=== PATIENT | male | born 1995 | race Two or more races ===

== ENCOUNTER 2025-06-20 21:10 | Emergency (ER) | payer MEDICAID, SELFPAY ==
[2025-06-20 21:15] VITALS: BMI 35.4
[2025-06-20 22:11] VITALS: BP 135/94; PULSE 109; RESP 20; TEMP 37.1; O2SAT 97
--- NOTE | 2025-06-20 22:34 | EKG_ITS ---
[facility] Test Date: 2025-06-20 Pat Name: ILYA SORIA Department: Room: - Gender: Male [employer] Operator: : 1995 Requested By: Jovanna Verduzco Order Number: [id number] Reading MD: Jovanna Verduzco Measurements Intervals [place] Rate: 122 P: 61 NE: 149 QRS: -7 QRSD: 118 T: 68 QT: 434 QTc: 621 Interpretive Statements SINUS TACHYCARDIA LOW QRS VOLTAGE IN PRECORDIAL LEADS [QRS DEFLECTION < 1.0 mV IN CHEST LEADS] INCOMPLETE RIGHT BUNDLE BRANCH BLOCK [90+ ms QRS DURATION, TERMINAL R IN V1/V2, 40+ ms S IN I/aVL/V4/V5/V6] ST DEVIATION AND MODERATE T-WAVE ABNORMALITY, CONSIDER ANTERIOR ISCHEMIA [-0.1+ mV T-WAVE IN V3/V4] No previous ECG available for comparison /store/S0/[id number].pdf
--- NOTE | 2025-06-20 22:34 | XR_ITS ---
Examination: CT abdomen with intravenous contrast CT pelvis with intravenous contrast 2-D coronal reconstructions 2-D sagittal reconstructions Date and time of exam:June 20, 2025 11:49 PM INDICATIONS: Abdominal pain and vomiting today. CTDI: vol (mGy) 12.6. DLP: (mGycm) 844. Technique: Multiple axial sections of the abdomen and pelvis have been obtained. 64 slice high-resolution scanner used. 3 mm axial sections have been obtained, post intravenous injection 60 cc Isovue 370. 2-D sagittal, coronal reconstructions obtained. Low dose protocols were performed. One or more of the following dose reduction techniques were used; automated exposure control, adjustment of the mA and/or KV according to patient size, use of iterative reconstruction technique. Findings: No focal liver or splenic lesions No gallstones No pancreatic or adrenal mass No renal or ureteral calculi, no hydronephrosis Normal appendix No bowel obstruction No diverticulitis Colonic diverticulosis, no diverticulitis Contracted urinary bladder Intact osseous structures IMPRESSION: Normal appendix No acute process in the abdomen or pelvis
--- NOTE | 2025-06-20 22:38 | PD.EDABDPN ---
ED Abdominal Pain RME/HPI General Chief Complaint: Abdominal Pain Stated complaint: ABD PAIN Time seen by provider: 06/20/25 22:30 Arrival date/time: 06/20/25 21:10 RME / HPI RME / HPI narrative: Dr. Xavier?s Main ED Evaluation: 29yo male presents to the ED for a chief complaint of diffuse abdominal pain x this morning. Patient states he woke up having diffuse abdominal pain this morning that progressively got worse. He reports associated N/V that is black in color, so he came in for evaluation. Patient denies any fever, chills, or any other associated symptoms. NKA. Related Data Allergies Allergy/AdvReac Type Severity Reaction Status Date / Time No Known Allergies Allergy Verified 06/20/25 21:13 Review of Systems Review of Systems Systems Reviewed: All systems reviewed, normal except as documented Past Medical History Social History SMOKING STATUS: Never smoker ED Exam Narrative Physical exam: GENERAL APPEARANCE: alert and oriented x 4, actively vomiting, appears uncomfortable VITALS: All vitals were reviewed and the pulse ox is 97% on room air, which is normal according to my interpretation. HEENT: Normocephalic, atraumatic; pupils equal, round, reactive to light; EOMI; mucous membranes pink, moist; oropharynx clear NECK: Supple LUNGS: CTABL; no wheezes, no rales, no rhonchi HEART: Regular rate, regular rhythm; normal S1, S2; no murmurs ABDOMEN: non distended; normal BS; soft, no tenderness, no guarding, no rebound; no masses, no organomegaly, no hernia BACK: no CVA tenderness EXTREMITIES: atraumatic; no edema NEUROLOGIC: awake; alert and oriented x4; cranial nerves II-XII grossly intact; no focal sensory or motor deficits PSYCHIATRIC: appropriate mood and affect SKIN: warm, dry, normal color; no rashes Course Quality Measures none Orders Category Date Time Status Bedside COVID-19 Antigen Test NOW Care 06/20/25 23:13 Completed Bedside Influenza A&B Antigen Test NOW Care 06/20/25 23:[address] Screening NOW Care 06/20/25 22:34 Completed Integrative Medicine Physician NOW Care 06/20/25 22:34 Completed EKG (ED ONLY) *Do not use* NOW Care 06/20/25 22:[address] abdomen pelvis w con Stat Exams 06/20/25 22:34 Completed EKG (ED Only) Stat Exams 06/20/25 22:34 Draft Alcohol, Blood Medical Stat Lab 06/20/25 23:28 Completed B-Type Natriuretic Peptide Stat Lab 06/20/25 22:50 Completed Blood Culture (Lab) Stat Lab 06/20/25 23:23 Completed CBC Stat Lab 06/20/25 22:50 Completed Comprehensive Metabolic Panel Stat Lab 06/20/25 22:50 Completed Drug Screen,Urine Stat Lab 06/20/25 23:25 Completed Lactate (Lactic Acid) Stat Lab 06/20/25 22:50 Completed Lipase Stat Lab 06/20/25 22:50 Completed Magnesium Stat Lab 06/20/25 22:50 Completed Procalcitonin Stat Lab 06/20/25 23:28 Completed Troponin I Stat Lab 06/20/25 22:50 Completed UA, C/S IF [Urinalysis, C/S if Indicated] Stat Lab 06/20/25 23:25 Completed Urine Culture Stat Lab 06/20/25 23:25 Completed Morphine Inj Med 06/20/25 22:53 Discontinued 5 mg IVP X1 ONE Ondansetron Inj [Zofran Inj] Med 06/20/25 22:34 Discontinued 4 mg IVP X1 ONE Pantoprazole Inj [Protonix Inj] Med 06/20/25 22:35 Discontinued 80 mg IVP X1 ONE Sodium Chloride 0.9% 1000 ml [Ns] 1,000 ml Med 06/20/25 22:34 Discontinued IV 999 mls/hr Reevaluation(s) Reevaluation #1: Patient's symptoms have resolved and he feels significantly better. Patient is stable to be discharged home. Time: 01:56 Vital Signs Vital signs: Vital Signs Temperature 98.8 F 06/20/25 22:11 Pulse Rate 109 H 06/20/25 22:11 Respiratory Rate 20 06/20/25 22:11 Blood Pressure 135/94 H 06/20/25 22:11 Pulse Oximetry (%) 97 06/20/25 22:11 Oxygen Delivery Method Room Air 06/20/25 22:11 Abdominal Pain MDM MDM Narrative MDM Narrative:: Scribe Attestation: 06/20/25 - I, Dorina Barber am scribing for and in the presence of Dr. Xavier. Patient data External records reviewed:: [facility] previous records (Per chart review, patient has no previous ED visits or admissions to this facility.) Clinical information provided by:: patient Social determinants that could affect healthcare access:: none Patient has the following chronic illnesses:: none How is presenting disease/condition affected by chronic disease/condition?: no chronic disease Evaluation data The following diagnostics were reviewed and interpreted by me:: lab results, radiology exam(s) and EKG tracing(s) Lab and/or radiology exams considered but not ordered:: none Interpretation Summary: COVID/Influenza negative, WBC 20.2, Potassium 3.3, Lactic Acid normal, Troponin normal, BNP 251, Lipase normal, Procalcitonin normal; UA remarkable for 2+ protein, 4+ ketones, 4 RBCs, and 17 WBCs; UDS positive for marijuana. Blood Alcohol negative. EKG done at 2239, sinus tachycardia, rate of 122, artifact, incomplete RBBB, no acute ST or T-wave changes, according to my interpretation. [facility] Report Signed Patient: ILYA SORIA Record#: [id number] Birthdate: 1995 Age/Sex: 29 / M Location: [facility] Attending Dr: Ordering Physician: Jovanna Xavier MD Date of Service: 06/20/25 Procedure(s): CT abdomen pelvis w con Accession Number(s): [id number] cc: Hernandez Seo MD; Jovanna Xavier MD~ Examination: CT abdomen with intravenous contrast CT pelvis with intravenous contrast 2-D coronal reconstructions 2-D sagittal reconstructions Date and time of exam:June 20, 2025 11:49 PM INDICATIONS: Abdominal pain and vomiting today. CTDI: vol (mGy) 12.6. DLP: (mGycm) 844. Technique: Multiple axial sections of the abdomen and pelvis have been obtained. 64 slice high-resolution scanner used. 3 mm axial sections have been obtained, post intravenous injection 60 cc Isovue 370. 2-D sagittal, coronal reconstructions obtained. Low dose protocols were performed. One or more of the following dose reduction techniques were used; automated exposure control, adjustment of the mA and/or KV according to patient size, use of iterative reconstruction technique. Findings: No focal liver or splenic lesions No gallstones No pancreatic or adrenal mass No renal or ureteral calculi, no hydronephrosis Normal appendix No bowel obstruction No diverticulitis Colonic diverticulosis, no diverticulitis Contracted urinary bladder Intact osseous structures IMPRESSION: Normal appendix No acute process in the abdomen or pelvis Dictated By: Hernandez Seo MD Signed By: <Electronically signed by Hernandez Seo MD in OV> 06/21/25 0001 Medications / Prescriptions Medications or Prescriptions considered but not ordered:: none Medication administrations:: Medication Administration History Discontinued Medications Sodium Chloride (Ns) 1,000 mls @ 999 mls/hr IV .Q1H1M ONE Stop: 06/20/25 23:34 Last Infusion: 06/21/25 00:34 Dose: Infused Documented By: Admin: 06/20/25 22:54 Dose: 999 mls/hr Documented By: DT Morphine Sulfate (Morphine Sulf Inj 10 Mg/Ml Vial) 5 mg IVP X1 ONE Stop: 06/20/25 22:54 Last Admin: 06/20/25 22:58 Dose: 5 mg Documented By: DT Ondansetron HCl (Ondansetron Inj 2 Mg/Ml Inj 2 Ml) 4 mg IVP X1 ONE Stop: 06/20/25 22:35 Last Admin: 06/20/25 22:53 Dose: 4 mg Documented By: DT Pantoprazole Sodium (Pantoprazole Inj 40 Mg Vial) 80 mg IVP X1 ONE Stop: 06/20/25 22:36 Last Admin: 06/20/25 22:53 Dose: 80 mg Documented By: DT see above Consultations Consultation(s) initiated? (list below): No Diagnosis Differential diagnosis abdominal pain: other (cannibinoid hyperemesis, AGE, food poisoning) Most likely diagnosis given after review of the tests above:: see clinical impression below Admission Indicated Admission indicated?: not indicated Explain why admission is indicated or not indicated:: With significant improvement and no condition needing emergent intervention, there was no indication for admission. Admission Request Was there a request for admission?: No Disposition Plan Disposition Plan: Discharge Discharge Attestation Discharge Attestation: The patient and all family members were given an opportunity to ask questions and understood the discharge instructions. Discharge instructions specifically effects, indications for sooner follow up or return to the emergency department, and the expected course of current diagnosis. Patient condition: Stable Discharge Plan Plan Patient Disposition: HOME (Self Care) Prescriptions/Referrals Referrals: No Primary/Family,Physician [Primary Care Provider] - In 1 week Problem List Clinical Impression: Vomiting Patient/Caregiver Discharge Instructions Education Materials: ED Vomiting (Adult) Print Language: Kinyarwanda Stand Alone Forms: Isela Award Info., Patient Portal Info Letter
[2025-06-20 22:52] VITALS: BP 126/92; PULSE 108; RESP 20; TEMP 36.5; O2SAT 96
[2025-06-20] MEDS: ONDANSETRON INJ 2 MG/ML INJ 2 ML 4 MG IVP (22:53)
[2025-06-20] MEDS: SODIUM CHLORIDE 0.9% 1000 ML 1,000 ML 999 ML IV (22:54)
[2025-06-20] MEDS: MORPHINE SULF INJ 10 MG/ML VIAL 5 MG IVP (22:58)
[2025-06-20 23:04] LABS: Lactate (Lactic Acid) 1.4 mMol/L (0.4-2.0)
[2025-06-20 23:06] LABS: Basophils # (Auto) 0.0 Thou/mm3 (0.0-0.2); Basophils % (Auto) 0 % (0-2.5); Eosinophils # (Auto) 0.0 Thou/mm3 (0.0-0.5); Eosinophils % (Auto) 0 % (0-10); Hematocrit 44.9 % (41.0-53.0); Hemoglobin 15.9 g/dL (13.5-16.0); Immature Granulocytes Auto 0.08 Thou/mm3 (0.00-0.00); Lymphocytes # (Auto) 1.7 Thou/mm3 (1.0-4.8); Lymphocytes % (Auto) 8 % (10-50); Mean Corpuscular HGB Conc 35.4 g/dl (31.0-37.0); Mean Corpuscular Hemoglobin 30.3 pg (25.0-35.0); Mean Corpuscular Volume 86 fL (80-100); Monocytes # (Auto) 1.0 Thou/mm3 (0.0-0.8); Monocytes % (Auto) 5 % (0-12); Neutrophils # (Auto) 17.5 Thou/mm3 (1.8-7.7); Neutrophils % (Auto) 87 % (37-80); Nucleated Red Blood Cell # 0.00 Thou/mm3 (0.00-0.00); Nucleated Red Blood Cell % 0 /100 WBC (0); Platelet Count 301 Thou/mm3 (140-440); RDW Standard Deviation 40.1 fL (35.1-43.9); Red Blood Count 5.25 Miln/mm3 (4.50-5.90); White Blood Count 20.2 Thou/mm3 (3.8-10.6)
[2025-06-20 23:25] LABS: B-Type Natriuretic Peptide 251 pg/mL (0-100)
[2025-06-20 23:27] LABS: Alanine Aminotransferase 16 U/L (10-49); Albumin, Serum 4.9 gm/dL (3.5-5.0); Albumin/Globulin Ratio 1.5 (1.2-2.2); Alkaline Phosphatase 104 U/L (46-116); Anion Gap 20 (7-16); Aspartate Amino Transferase 20 U/L (0-34); BUN/Creatinine Ratio 10 Ratio (12-20); Bilirubin,Total 0.7 mg/dL (0.3-1.2); Blood Urea Nitrogen 9 mg/dL (9-23); Calcium 10.0 mg/dL (8.3-10.6); Calcium (Corrected) 10.0 mg/dL (8.5-10.1); Carbon Dioxide 19.1 mMol/L (20.0-31.0); Chloride 99 mMol/L (98-107); Creatinine (Component) 0.9 mg/dL (0.6-1.3); Estimated Creatinine Clearance 149.9 mL/min (>60); Globulin 3.2 gm/dL (2.3-3.5); Glucose 113 mg/dL (74-106); Lipase 20 U/L (12-53); Magnesium 1.8 mg/dL (1.6-2.6); Osmolality,Calculated 275 (275-295); Potassium 3.3 mMol/L (3.4-5.1); Sodium 138 mMol/L (136-145); Total Protein 8.1 gm/dL (5.7-8.2); Troponin I < 0.020 ng/mL (0.0-0.045); eGFR > 60 See Note
[2025-06-20 23:34] LABS: Collection Type, Urine Clean Catch
[2025-06-20 23:41] LABS: Amorphous Crystals,Urine Present (Absent); Bilirubin,Urine 1+ (Negative); Blood,Urine Negative (Negative); Clarity,Urine Clear (Clear/Hazy); Color,Urine Yellow (Lt Yel-Yel); Culture Indicated,Urine Yes; Glucose, Urine Negative (Negative); Hyaline Casts,Urine 5 /hpf (0-1); Ketones,Urine 4+ (Negative); Leukocyte Esterase,Urine Negative (Negative); Nitrite,Urine Negative (Negative); PH,Urine 6.0 (5.0-7.0); Protein,Urine 2+ (Neg - Trace); RBC,Urine 4 /hpf (0-3); Specific Gravity,Urine 1.035 (1.001-1.035); Squamous Epithelial Cell,Urine < 1 /hpf (0-5); Urobilinogen,Urine 3.0 mg/dL (0.0-1.0); WBC,Urine 17 /hpf (0-5)
[2025-06-20 23:48] LABS: Amphetamine/Methamp Scrn,U Negative (Negative); Barbiturate Screen,Urine Negative (Negative); Benzodiazepines Screen,Urine Negative (Negative); Benzoylecgonine Screen, Ur Negative (Negative); Fentanyl Screen,Urine Negative (Negative); Opiate Screen,Urine Positive (Negative); THC Screen,Urine Positive (Negative)
[2025-06-21 00:14] LABS: Procalcitonin 0.04 ng/ml (0.0-0.49)
[2025-06-21 00:19] LABS: Alcohol, Blood Medical < 3.0 mg/dL (0-10.0)
[2025-06-21 00:36] VITALS: BP 126/76; PULSE 80; RESP 16; TEMP 37; O2SAT 99
[2025-06-21 01:38] VITALS: BP 108/68; PULSE 89; RESP 16; TEMP 37; O2SAT 98
[2025-06-21 02:09] VITALS: BP 144/85; PULSE 85; RESP 14; TEMP 37; O2SAT 99
== END 2025-06-21 02:09 | disposition home or self-care (01) ==
PROVIDERS: Emergency Provider Emergency Medicine
DX: R11.10 Vomiting, unspecified (principal); R10.84 Generalized abdominal pain; I45.10 Unspecified right bundle-branch block; R00.0 Tachycardia, unspecified; R94.31 Abnormal electrocardiogram [ECG] [EKG]
CPT/HCPCS: 36415; 74177; 80053; 80307; 80320; 81001; 83605; 83690; 83735; 83880; 84145; 84484; 85025; 87040; 87086; 87400; 87811; 93005; 96361; 96374; 96375; 99284; A4649; J2270; J2405; J2470; J7030; Q9967; G0480